=== PATIENT | female | born 1960 | race Caucasian/White ===

== ENCOUNTER 2019-10-17 00:31 | Inpatient (IN) | payer BC ==
[2019-10-17] MEDS ORDERED: Nitroglycerin 0.4 MG TAB (25 Tab Bottle) SL PRN (01:27)
[2019-10-17] MEDS ORDERED: Morphine 2 MG/ML SYRINGE SLOW IVP PRN (01:27)
[2019-10-17] MEDS ORDERED: Sodium Chloride 0.9% 500 ML IV SCH (01:30)
--- NOTE | 2019-10-17 02:16 | HP ---
CHIEF COMPLAINT: Chest pain. HISTORY OF PRESENT ILLNESS: Mrs. Bryant is a very pleasant 59-year-old white female, who comes to the hospital for chest pain. She went to the [place] [facility]. She has been having chest pain for the last day and a half. However, the pain became a lot worse about 2 hours prior to showing up in the ER. She noticed her blood pressure was in the 160, which is not normal for her and she had midsternal pressure, so she went to the ER, where she had an EKG and was found to have inferior ST elevations. She was transferred emergently to the [facility], where she was taken directly to the laborer pullet farm and found to have a severe, 99% stenosis on the distal RCA, which was the culprit lesion. This was stented with bare metal stents. Her pain was completely gone after the case. She felt much better. She denies having had any issues in the past. Her only problems have been osteoarthritis and she is scheduled to get an injection on her knee. She is going to get some sort of gel injected. She otherwise denies any more chest pain, tightness, or pressure. No shortness of breath. PAST MEDICAL HISTORY: Osteoarthritis. SURGICAL HISTORY: 1. Knee surgery. She had a meniscus tear repaired. 2. Tonsillectomy as a child. 3. Total hysterectomy secondary to bleeding fibroids and what she described as endometriosis. OUTPATIENT MEDICATIONS: Ibuprofen p.r.n. ALLERGIES: NO KNOWN DRUG ALLERGIES. SOCIAL HISTORY: Quit smoking about 10 years ago. Social alcohol use. No drug use. 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 REVIEW OF SYSTEMS: 12-point review of systems was done and was all negative unless stated in the history of present illness. PHYSICAL EXAMINATION: VITAL SIGNS: Temperature 98.2, pulse 98, respiratory rate 18, saturating 98% on 2 L nasal cannula, and blood pressure was 136/82. GENERAL: Awake, alert, and oriented x3. No distress. HEENT: Normocephalic and atraumatic. NECK: Supple. LUNGS: Clear. CARDIOVASCULAR: S1 and S2. No S3 or S4. No murmurs or rubs. ABDOMEN: Soft. Positive bowel sounds. EXTREMITIES: No edema. SKIN: Warm and dry. LABORATORY DATA: Laboratory work was reviewed from her ER visit. CBC is unremarkable. Hemoglobin was 12.9. Coags; ACT was 189. Chemistries; potassium was low at 2.9, glucose was 121, calcium of 10.8, BUN 9, creatinine of 0.78, and GFR of 76. Troponin was undetectable x1. BNP was 28. Albumin was 4.9. EKG was reviewed, inferior ST elevations with reciprocal changes. ASSESSMENT/PLAN: 1. Inferior ST-elevation myocardial infarction. 2. Osteoarthritis. PLAN: 1. Status post bare-metal stent to the RCA. She has no significant residual disease. There is about a 40% stenosis in the left circumflex. 2. We will start high dose statins. 3. Brilinta and low-dose aspirin. 4. Echocardiogram to be done tomorrow. 5. Trend troponins. 6. Echocardiogram in the morning. 7. EF was normal on LV gram with inferior hypokinesis with EF about 60%. 8. PPI for stress ulcer prophylaxis. 9. She had an Angio-Seal placed on her right femoral arteriotomy site. 10. We will start Lovenox subcu for DVT prophylaxis tomorrow. 11. Full code. 12. Disposition, pending clinical evolution, probably inpatient for 2 to 3 days. Job ID: [id number]
[2019-10-17 02:25] VITALS: BMI 27.3
[2019-10-17 02:28] LABS: CKMB 3.3 ng/mL (0-6.6)
[2019-10-17 02:30] LABS: Troponin I 0.368 ng/mL (< 0.028)
[2019-10-17 03:03] LABS: Cardiac Risk 5.5 (Less than 4.5)
[2019-10-17 03:21] LABS: Thyroid Stimulating Hormone 14.9558 uIU/mL (0.35-4.94)
[2019-10-17 04:16] LABS: Free T4 (Free Thyroxine) 0.88 ng/dL (0.70-1.48)
[2019-10-17 05:39] LABS: Anion Gap 11 mmol/L (10-20); BUN (Urea Nitrogen) 7 mg/dL (9.8-20.1); Calc. Creatinine Clearance 108 mL/min (70-130); Calcium 9.3 mg/dL (7.8-10.44); Carbon Dioxide 25 mmol/L (22-29); Chloride 108 mmol/L (98-107); Estimated GFR-MDRD 83; Glucose 136 mg/dL (70-105); Potassium 3.3 mmol/L (3.5-5.1); Sodium 141 mmol/L (136-145)
[2019-10-17] MEDS: Aspirin Chewable 81 MG TAB PO SCH (07:29)
[2019-10-17] MEDS: Enoxaparin Sodium 30 MG/0.3 ML SYRINGE SC SCH (07:29)
[2019-10-17] MEDS: Carvedilol 3.125 MG TAB PO SCH ×2 (07:30→16:26)
[2019-10-17] MEDS: TICAGRELOR 90 MG TABLET PO SCH ×2 (07:32→20:33)
[2019-10-17 08:06] LABS: CKMB 4.9 ng/mL (0-6.6)
[2019-10-17] MEDS ORDERED: ALPRAZolam 0.5 MG TAB PO PRN (09:58)
[2019-10-17] MEDS ORDERED: Iopamidol 370 76% 100 ML VIAL ONE (11:09)
[2019-10-17] MEDS ORDERED: Iopamidol 370 76% 50 ML VIAL FS ONE (11:09)
--- NOTE | 2019-10-17 11:25 | PDOC.CPN ---
- Subjective Date: 10/17/19 Time: 11:23 Interval history: She is doing much better. Had a little anxiety earlier today and it improved with Xanax. No more chest pain. - Review of Systems General: denies: fever/chills, weight/appetite/sleep changes, night sweats, fatigue Respiratory: denies: cough, congestion, shortness of breath, exercise intolerance Cardiovascular: denies: chest pain, palpitation, edema, paroxysmal nocturnal dyspnea, orthopnea Gastrointestinal: denies: nausea, vomiting, diarrhea, constipation, abd pain, GI bleeding Musculoskeletal: denies: pain, tenderness, stiffness, swelling, arthritis/ arthralgias Neurological: denies: numbness, syncope, seizure, weakness - Objective Allergies/Adverse Reactions: Allergies Allergy/AdvReac Type Severity Reaction Status Date / Time No Known Allergies Allergy Unverified 10/17/19 01:27 Visit Medications: Current Medications Hydrocodone Bitart/Acetaminophen ([place] 5/325) 1 tab PO Q6H PRN PRN Reason: Pain Alprazolam (Xanax) 0.5 mg PO BIDPRN PRN PRN Reason: Anxiety Last Admin: 10/17/19 10:09 Dose: 0.5 mg Aspirin (Aspirin Chewable) 81 mg PO DAILY [facility] Last Admin: 10/17/19 07:29 Dose: 81 mg Atorvastatin Calcium (Lipitor) 80 mg PO [facility] Carvedilol (Coreg) 3.125 mg PO BID-[facility] Last Admin: 10/17/19 07:30 Dose: 3.125 mg Enoxaparin Sodium (Lovenox) 30 mg SC 0900 [facility] Last Admin: 10/17/19 07:29 Dose: 30 mg Influenza Virus Vaccine Quadrival (Fluzone Quad Syringe) 60 mcg IM .ONCE ONE Stop: 10/17/19 21:01 Morphine Sulfate (Morphine) 2 mg SLOW IVP Q4H PRN PRN Reason: Moderate Chest Pain (4-6) Last Admin: 10/17/19 07:28 Dose: 2 mg Nitroglycerin (Nitrostat) 0.4 mg SL Q5MIN PRN PRN Reason: Chest Pain Pantoprazole Sodium (Protonix) 40 mg PO DAILY [facility] Last Admin: 10/17/19 07:30 Dose: 40 mg Pneumococcal Polyvalent Vaccine (Pneumovax 23) 0.5 ml IM .ONCE ONE Stop: 10/17/19 21:01 Ticagrelor (Brilinta) 90 mg PO BID [facility] Last Admin: 10/17/19 07:32 Dose: 90 mg Vital Signs & Weight: Vital Signs Temp Pulse Resp BP Pulse Ox 10/17/19 11:00 97.6 F 10/17/19 08:00 98 10/17/19 07:00 98.5 F 10/17/19 04:00 98.5 F 98 10/17/19 02:00 100 10/17/19 01:46 98.0 F 94 18 152/91 H 98 10/17/19 01:34 98.0 F 10/17/19 01:27 98 Weight 174 lb 6.17 oz - Physical Exam General: alert & oriented x3, no apparent distress HEENT: mucus membranes moist, normocephaly Neck: supple neck, midline trachea Cardiac: regular rate and rhythm, no murmur Lungs: clear to auscultation Neuro: grossly intact Abdomen: active bowel sounds, soft, non-tender Extremities: no edema Skin: clear Musculoskeletal: no pain - Labs Result Diagrams: 10/17/19 05:00 Troponin/CKMB CK-MB (CK-2) 4.9 ng/mL (0-6.6) 10/17/19 07:28 Troponin I 0.990 ng/mL (< 0.028) H* 10/17/19 07:28 - Telemetry Sinus rhythms and dysrhythmias: sinus rhythm - Assessment/Plan Assessment/Plan: 1. Infeiror STEMI 2. OA PLAN: - S/P BMS to RCA - Continue Brilinta and aspirin - High dose statins - Echo pending, - Will transfer to telemetry floor.
[2019-10-17] MEDS: HYDROcodone/Acetaminophen 5/325 mg Tablet PO PRN (12:52)
[2019-10-17] MEDS ORDERED: Potassium Chloride 20 MEQ TAB PO SCH (16:45)
[2019-10-17] MEDS: Atorvastatin Calcium 40 MG TAB PO SCH (20:32)
[2019-10-17] MEDS ORDERED: FLU VACC QS2019-20(6MOS UP)/PF 60 MCG/0.5 ML SYRINGE IM ONE (21:00)
[2019-10-18] MEDS: HYDROcodone/Acetaminophen 5/325 mg Tablet PO PRN ×2 (04:03→10:23)
[2019-10-18 04:41] LABS: #Eosinphils 0.1 thou/uL (0.0-0.7); #Lymphocytes 2.4 thou/uL (1.20-3.40); #Monocytes 0.6 thou/uL (0.11-0.59); #Neutrophils 4.3 thou/uL (1.40-6.50); %Basophils 0.4 % (0.0-1.0); %Eosinophils 1.1 % (0.0-10.0); %Lymphocytes 32.6 % (21.0-51.0); %Monocytes 7.8 % (0.0-10.0); %Neutrophils 58.1 % (42.0-75.0); Mean Corpuscular HGB CONC 33.2 g/dL (32.0-36.0); Mean Corpuscular Hemoglobin 29.6 pg (27.0-31.0); Mean Corpuscular Volume 89.4 fL (78.0-98.0); Mean Platelet Volume 8.2 fL (7.4-10.4); Platelet Count 234 thou/uL (130-400); RBC Distribution Width 11.7 % (11.5-14.5); Red Blood Cell (RBC) Count 4.05 mill/uL (4.20-5.40); White Blood Cell (WBC) Count 7.4 thou/uL (4.8-10.8)
[2019-10-18 05:05] LABS: AST (SGOT) 18 U/L (5-34); Albumin 4.1 g/dL (3.5-5.0); Alkaline Phosphatase 79 U/L (40-110); Anion Gap 9 mmol/L (10-20); BUN (Urea Nitrogen) 7 mg/dL (9.8-20.1); Bilirubin, Total 0.6 mg/dL (0.2-1.2); Calc. Creatinine Clearance 115 mL/min (70-130); Calcium 9.3 mg/dL (7.8-10.44); Carbon Dioxide 27 mmol/L (22-29); Chloride 110 mmol/L (98-107); Estimated GFR-MDRD Greater than 90; Globulin 2.7 g/dL (2.4-3.5); Glucose 95 mg/dL (70-105); Potassium 3.8 mmol/L (3.5-5.1); Protein, Total 6.8 g/dL (6.0-8.3); Sodium 142 mmol/L (136-145)
[2019-10-18 05:06] LABS: ALT (SGPT) 20 U/L (8-55)
[2019-10-18] MEDS: Carvedilol 3.125 MG TAB PO SCH ×2 (09:46→16:57)
[2019-10-18] MEDS: Aspirin Chewable 81 MG TAB PO SCH (09:46)
[2019-10-18] MEDS: Lisinopril 2.5 MG TAB PO SCH (09:46)
[2019-10-18] MEDS: Enoxaparin Sodium 30 MG/0.3 ML SYRINGE SC SCH (09:47)
[2019-10-18] MEDS: TICAGRELOR 90 MG TABLET PO SCH ×2 (09:48→19:39)
--- NOTE | 2019-10-18 14:38 | PDOC.CPN ---
- Subjective Date: 10/18/19 Time: 14:36 Interval history: She is doing very well. No chest pain. - Review of Systems General: denies: fever/chills, weight/appetite/sleep changes, night sweats, fatigue Respiratory: denies: cough, congestion, shortness of breath, exercise intolerance Cardiovascular: denies: chest pain, palpitation, edema, paroxysmal nocturnal dyspnea, orthopnea Gastrointestinal: denies: nausea, vomiting, diarrhea, constipation, abd pain, GI bleeding Musculoskeletal: denies: pain, tenderness, stiffness, swelling, arthritis/ arthralgias Neurological: denies: numbness, syncope, seizure, weakness - Objective Allergies/Adverse Reactions: Allergies Allergy/AdvReac Type Severity Reaction Status Date / Time No Known Allergies Allergy Unverified 10/17/19 01:27 Visit Medications: Current Medications Acetaminophen (Tylenol) 650 mg PO Q6H PRN PRN Reason: Headache/Fever or Pain Hydrocodone Bitart/Acetaminophen ([place] 5/325) 1 tab PO Q6H PRN PRN Reason: Pain Last Admin: 10/18/19 10:23 Dose: 1 tab Alprazolam (Xanax) 0.5 mg PO BIDPRN PRN PRN Reason: Anxiety Last Admin: 10/17/19 10:09 Dose: 0.5 mg Aspirin (Aspirin Chewable) 81 mg PO DAILY [facility] Last Admin: 10/18/19 09:46 Dose: 81 mg Atorvastatin Calcium (Lipitor) 80 mg PO HS [facility] Last Admin: 10/17/19 20:32 Dose: 80 mg Carvedilol (Coreg) 3.125 mg PO BID-WM [facility] Last Admin: 10/18/19 09:46 Dose: 3.125 mg Enoxaparin Sodium (Lovenox) 30 mg SC 0900 [facility] Last Admin: 10/18/19 09:47 Dose: 30 mg Lisinopril (Zestril) 2.5 mg PO DAILY [facility] Last Admin: 10/18/19 09:46 Dose: 2.5 mg Morphine Sulfate (Morphine) 2 mg SLOW IVP Q4H PRN PRN Reason: Moderate Chest Pain (4-6) Last Admin: 10/17/19 07:28 Dose: 2 mg Nitroglycerin (Nitrostat) 0.4 mg SL Q5MIN PRN PRN Reason: Chest Pain Pantoprazole Sodium (Protonix) 40 mg PO DAILY [facility] Last Admin: 10/18/19 09:47 Dose: 40 mg Ticagrelor (Brilinta) 90 mg PO BID [facility] Last Admin: 10/18/19 09:48 Dose: 90 mg Vital Signs & Weight: Vital Signs Temp Pulse Resp BP Pulse Ox 10/18/19 12:00 98.6 F 79 18 129/72 97 10/18/19 08:10 97.9 F 83 18 121/60 97 10/18/19 04:00 97.8 F 84 16 125/69 94 L Weight 170 lb 10.205 oz - Physical Exam General: alert & oriented x3 HEENT: mucus membranes moist, normocephaly Neck: supple neck, midline trachea Cardiac: no murmur Lungs: clear to auscultation, no wheeze, rales, rhonchi Neuro: grossly intact Abdomen: active bowel sounds, soft, non-tender Extremities: no edema Skin: clear Musculoskeletal: no pain - Labs Result Diagrams: 10/18/19 03:56 10/18/19 03:56 Troponin/CKMB CK-MB (CK-2) 4.9 ng/mL (0-6.6) 10/17/19 07:28 Troponin I 0.990 ng/mL (< 0.028) H* 10/17/19 07:28 - Telemetry Sinus rhythms and dysrhythmias: sinus rhythm - Assessment/Plan Assessment/Plan: 1. Infeiror STEMI 2. OA PLAN: - S/P BMS to RCA - Continue Brilinta and aspirin - High dose statins - Normal LV function on echo. - Home tomorrow morning.
[2019-10-18] MEDS: Acetaminophen 325 MG TAB PO PRN (14:40)
--- NOTE | 2019-10-18 16:02 | EKG ---
Test Reason : POST CATH Blood Pressure : / mmHG Vent. Rate : 088 BPM Atrial Rate : 088 BPM P-R Int : 160 ms QRS Dur : 088 ms QT Int : 368 ms P-R-T Axes : 063 061 002 degrees QTc Int : 445 ms Normal sinus rhythm T wave abnormality, consider inferior ischemia Abnormal ECG No previous ECGs available Confirmed by DR. Araceli COUGHLIN MD ([id number]) on 10/18/2019 4:02:06 PM Referred By: Abigail CASILLAS Confirmed By:DR. Araceli COUGHLIN MD
[2019-10-18] MEDS: Atorvastatin Calcium 40 MG TAB PO SCH (19:38)
[2019-10-19] MEDS: Acetaminophen 325 MG TAB PO PRN (07:50)
[2019-10-19] MEDS: Carvedilol 3.125 MG TAB PO SCH (07:50)
[2019-10-19] MEDS: Enoxaparin Sodium 30 MG/0.3 ML SYRINGE SC SCH (09:36)
[2019-10-19] MEDS: Aspirin Chewable 81 MG TAB PO SCH (09:36)
[2019-10-19] MEDS: Lisinopril 2.5 MG TAB PO SCH (09:37)
[2019-10-19] MEDS: TICAGRELOR 90 MG TABLET PO SCH (09:38)
[2019-10-19 14:01] VITALS: BP 121/75; TEMP 98.4
--- NOTE | 2019-10-19 18:47 | DIS ---
DATE OF ADMISSION: 10/17/2019 DATE OF DISCHARGE: 10/19/2019 DISCHARGING PHYSICIAN: Ad Washington MD. PRIMARY DIAGNOSIS: Inferior ST-elevation myocardial infarction. PROCEDURES PERFORMED: 1. Echocardiogram. 2. Heart catheterization emergently and stent placement to the RCA with bare metal stent. SUMMARY: Ms. Bryant is a very pleasant 59-year-old white female, who came to the hospital with chest pain. 2 hours into her episode of chest pain, she was found to have ST elevations and transferred immediately from the [facility] to [facility], where she was taken immediately to the labourers and found to have a subtotaled RCA lesion. This was stented successfully with bare metal stent. She had a 3.0 x 20 mm stent distally and a 3.5 x 24 mm bare metal stent proximally. She did well postoperatively. Echocardiogram showed an EF of 55% to 60% with grade 1 diastolic dysfunction and mild inferior hypokinesis. She was pain free. Blood pressure was slightly high in the 130s so we were able to start a low-dose JUDAH inhibitor and beta julio. She tolerated dual antiplatelet therapy and statin therapy as well. Her lipid profile showed an LDL of 224, goal is to be less than 70. Her TSH was high, but her free T4 was low normal. This may be sick euthyroid syndrome. Her troponin went as high as 0.99, so her TN was actually small as it was so quick to be opened up. She is doing well on day of discharge without any issues. DISCHARGE MEDICATIONS: 1. Aspirin 81 a day. 2. Brilinta 90 mg p.o. b.i.d. 3. Lipitor 80 mg p.o. at bedtime. 4. Coreg 3.125 b.i.d. 5. Lisinopril 2.5 mg a day. 6. Sublingual nitroglycerin p.r.n. with 0.4 mg as needed for chest pain. Followup appointments with Dr. Washington in 4-6 weeks. 30 minutes spent at bedside for discharge instructions. Job ID: [id number]
--- NOTE | 2019-10-21 21:08 | EKG ---
Test Reason : CHEST PAIN Blood Pressure : / mmHG Vent. Rate : 106 BPM Atrial Rate : 107 BPM P-R Int : 152 ms QRS Dur : 084 ms QT Int : 364 ms P-R-T Axes : 047 061 005 degrees QTc Int : 483 ms Sinus tachycardia Otherwise normal ECG Confirmed by Peyman SUE ([id number]) on 10/21/2019 9:08:05 PM Referred By: VINNY Confirmed By:Peyman SUE
--- NOTE | 2019-10-21 21:15 | EKG ---
Test Reason : Blood Pressure : / mmHG Vent. Rate : 083 BPM Atrial Rate : 083 BPM P-R Int : 154 ms QRS Dur : 086 ms QT Int : 390 ms P-R-T Axes : 066 054 -08 degrees QTc Int : 458 ms Normal sinus rhythm T wave abnormality, consider inferior ischemia Abnormal ECG When compared with ECG of 17-OCT-2019 07:28, (Unconfirmed) T wave amplitude has increased in Anterior leads Confirmed by Peyman SUE ([id number]) on 10/21/2019 9:14:21 PM Referred By: VINNY Confirmed By:Peyman SUE
== END 2019-10-19 14:50 | disposition home or self-care (01) | DRG 249 ==
LOC: CCL 00:31 → CCU 01:05 → 2NO 12:46
PROVIDERS: ADMIT Internal Medicine Cardiovascular Disease; ATTEND Internal Medicine Cardiovascular Disease
PROC: 4A023N7 Measurement of Cardiac Sampling and Pressure, Left Heart, Percutaneous Approach (ICD-10-PCS; principal; 2019-10-17)
PROC: 02703DZ Dilation of Coronary Artery, One Artery with Intraluminal Device, Percutaneous Approach (ICD-10-PCS; 2019-10-17)
PROC: 02C03ZZ Extirpation of Matter from Coronary Artery, One Artery, Percutaneous Approach (ICD-10-PCS; 2019-10-17)
PROC: B2111ZZ Fluoroscopy of Multiple Coronary Arteries using Low Osmolar Contrast (ICD-10-PCS; 2019-10-17)
PROC: 3E02340 Introduction of Influenza Vaccine into Muscle, Percutaneous Approach (ICD-10-PCS; 2019-10-17)
PROC: 3E0234Z Introduction of Serum, Toxoid and Vaccine into Muscle, Percutaneous Approach (ICD-10-PCS; 2019-10-17)
DX: I21.19 ST elevation (STEMI) myocardial infarction involving other coronary artery of inferior wall (principal); M19.90 Unspecified osteoarthritis, unspecified site; F41.9 Anxiety disorder, unspecified; Z90.710 Acquired absence of both cervix and uterus; Z87.891 Personal history of nicotine dependence; Z23 Encounter for immunization
CPT/HCPCS: 36415; 80048; 80053; 80061; 82553; 84439; 84443; 84484; 85025; 85347; 90471; 90686; 90732; 92941; 93005; 93010; 93306; 93458; 93798; C1760; C1769; C1876; C1887; G0008; G0009; J1650; J2270; Q9967

== ENCOUNTER 2019-11-15 07:15 | Observation (INO) | payer BC ==
[2019-11-15] MEDS ORDERED: Enoxaparin Sodium 80 MG/0.8 ML SYRINGE ONE (12:24)
[2019-11-15 12:40] LABS: Troponin I 0.036 ng/mL (< 0.028)
[2019-11-15] MEDS ORDERED: Acetaminophen 325 MG TAB PO PRN (14:03)
[2019-11-15] MEDS ORDERED: HYDROcodone/Acetaminophen 10/325 mg Tablet PO PRN (14:03)
[2019-11-15] MEDS ORDERED: Ondansetron ODT 4 MG TAB PO PRN (14:03)
[2019-11-15] MEDS ORDERED: HYDROcodone/Acetaminophen 5/325 mg Tablet PO PRN (14:03)
[2019-11-15] MEDS ORDERED: Ondansetron PF 4 MG/2 ML Vial IVP PRN (14:03)
[2019-11-15] MEDS ORDERED: Nitroglycerin 0.4 MG TAB (25 Tab Bottle) SL PRN (14:07)
[2019-11-15] MEDS ORDERED: Acetaminophen 325 MG TAB ONE (14:47)
--- NOTE | 2019-11-15 15:07 | HP ---
PRIMARY CARE PROVIDER: Dr. Laurence Hernandez. CHIEF COMPLAINT: Chest pain. HISTORY OF PRESENT ILLNESS: A 59-year-old female with past medical history significant for recent [id number] myocardial infarction, status post stent placement on October 17, 2019, brought in on transfer from [place] [facility] for further evaluation and treatment of acute onset of chest pain. The patient reported that since discharge from the hospital on October 20, she has been having intermittent midsternal chest pain, rated around 4 to 6/10, which resolves with sublingual nitro. The patient yesterday reportedly developed an episode of midsternal chest pain, which lasted for 5 minutes, but resolved completely following sublingual nitro. However, about 45 minutes later, she started having chest pain again and also resolved following sublingual nitro. The patient was concerned at this point, hence she went to the ER in [place], where she was evaluated with serial troponins, which were negative. EKG also obtained was unremarkable. Cardiology on-call, Dr. Schmid was contacted and he recommended transfer over here for observation. The patient denied nausea, vomiting, diaphoresis, headache, leg swelling, shortness of breath, palpitations, dysuria, hematuria, abdominal pain, or change in bowel habit. She however did report headache earlier today on presentation to the hospital. Midsternal chest pain has resolved since after the second episode yesterday and the patient has not had any further midsternal chest pain up to present. However, she reported some intermittent left axillary pain, rated at 3 to 4, lasting about 2 minutes, which resolved spontaneously. There is no history of cough, fever, shortness of breath, or sick contact. PAST MEDICAL HISTORY: 1. Coronary artery disease, status post recent stent placement. 2. Degenerative joint disease. 3. Anxiety. PAST SURGICAL HISTORY: 1. Cataract surgery. 2. Cardiac catheterization with stent placement. 3. Hysterectomy. 4. Tonsillectomy. 5. Left knee surgery. FAMILY HISTORY: Significant for coronary artery disease in mother and grandparents. Father from rare muscular dystrophy. SOCIAL HISTORY: The patient lives with family in [place]. She is a former smoker, who smoked a pack for more than 30 years, but quit about 2 years ago. Denied recreational drug use, but admitted to occasional alcohol use. ALLERGIES: NO KNOWN DRUG ALLERGIES REPORTED. MEDICATIONS: Prior to hospital medications; 1. Aspirin 81 mg p.o. daily. 2. Lisinopril 2.5 mg p.o. daily. 3. Brilinta 90 mg p.o. b.i.d. 4. Lipitor 80 mg p.o. daily at bedtime. 5. Carvedilol 3.125 mg p.o. b.i.d. REVIEW OF SYSTEMS: A 12-point review of system performed, was negative other than pertinent positives and negatives included in the history of present illness. PHYSICAL EXAMINATION: VITAL SIGNS: Temperature 97.8, pulse 81, respiratory rate 18, SpO2 of 100% on room air, blood pressure is 107/70. GENERAL: Middle-age female, in no obvious distress. Afebrile, anicteric, acyanotic. HEENT: Normocephalic, atraumatic. Oral mucosa is moist. NECK: Supple with no JVD or masses. CARDIOVASCULAR: Regular rhythm and rate with normal heart sounds 1 and 2. No murmur was appreciated. RESPIRATORY: Good air entry bilaterally with no crackle or rhonchi or use of accessory muscles. GI: Full, soft, nontender, nondistended with normal bowel sounds. EXTREMITIES: Grossly normal looking, atraumatic with no edema or erythema. Distal pulses are palpable. STOCK PARTS FABRICATOR: Conscious, alert and oriented x3 with appropriate mental status. Cranial nerves 2 through 12 are grossly intact. The patient moves all extremities. PSYCHIATRIC: The patient has emotional lability. Denied suicidal ideation. DIAGNOSTIC DATA: CBC on November 14, 2019, showed WBC count of 7.1, hemoglobin of 12.0, MCV of 90.6, platelets of 269. CMP on November 14, 2019, showed sodium 143, potassium 3.7, chloride 107, CO2 of 24, BUN 18, creatinine 0.75, glucose 99, calcium 9.5. Total bilirubin 0.3, AST 22, ALT 27, alkaline phosphatase 97, total protein 7.6, albumin 4.5, globulin 3.1. Lipase is 32. Serial troponin x3 performed at [place] from 9 p.m. on November 14 to 3 a.m. on November 15 were unremarkable at less than 0.010. However, repeat troponin at 11:58 a.m. on November 15 was elevated at 0.036. EKG showed normal sinus rhythm with no obvious ischemic changes. Evidence of prior WI is noted. ASSESSMENT: 1. Chest pain: Intermittent since recent ST-elevation myocardial infarction. This is concerning for unstable angina and/or [id number] myocardial infarction, given elevation in troponin, though indeterminate range. The patient also reported some intermittent left axillary pain, which is however, different from usual substernal chest pain. 2. Anxiety disorder. 3. Gastroesophageal reflux disease. PLAN: 1. We will admit the patient to telemetry. 2. We will monitor hemodynamics closely. 3. We will also get serial troponin. 4. We will restart antiplatelets. 5. We will also start the patient on anticoagulation with Lovenox for acute coronary syndrome. 6. We will consult Cardiology for further evaluation and treatment. 7. Diet as tolerated. 8. Code status: Full code. Daughter is the surrogate decision maker. 9. Further treatment to follow depending on hospital course. Job ID: [id number]
[2019-11-15 15:32] LABS: Troponin I 0.022 ng/mL (< 0.028)
[2019-11-15] MEDS: Carvedilol 3.125 MG TAB PO SCH (17:42)
[2019-11-15 18:14] VITALS: BMI 27.1
[2019-11-15] MEDS ORDERED: Aspirin 81 mg Enteric Coated Tablet PO SCH (18:15)
[2019-11-15 19:01] LABS: Troponin I Less than 0.010 ng/mL (< 0.028)
[2019-11-15] MEDS: Famotidine 20 MG TAB PO SCH (20:42)
[2019-11-15] MEDS: TICAGRELOR 90 MG TABLET PO SCH (20:42)
[2019-11-15] MEDS: Famotidine/PF 20 mg/2ml Vial SLOW IVP SCH (20:42)
[2019-11-15] MEDS ORDERED: Enoxaparin Sodium 80 MG/0.8 ML SYRINGE SC SCH (21:00)
[2019-11-15] MEDS ORDERED: Atorvastatin Calcium 40 MG TAB PO SCH (21:00)
--- NOTE | 2019-11-16 00:28 | CON ---
DATE OF CONSULTATION: 11/15/2019 REASON FOR CONSULTATION: Recurrent chest pain. PRIMARY FAMILY LAW MEDIATOR: Dr. Ad Washington. HISTORY OF PRESENT ILLNESS: Ms. Aelsia Bryant is a very pleasant 59-year-old woman. The patient had an acute inferior myocardial infarction on 10/17/2019. She presented with severe substernal chest pain. She was taken to cardiac catheterization lab. She was found to have no obstructive stenosis in the left main or LAD, nonobstructive plaque in the mid circumflex, and a subtotal lesion in the right coronary artery. She had 2 stents placed. This was done successfully on 10/17/2019. She had a 3.0 x 20 mm bare-metal stent and a 3.5 x 24 mm bare-metal stent. The patient tolerated that well and only had a very slight rise in cardiac enzymes. The patient did well and was released home. The ejection fraction was within normal limits. The patient had some recurrent chest pain yesterday. The patient states that it was really identical to the pain she had when she had a heart attack, but it was much less intense. It was in the middle of her chest. It came on at rest at about 1:00 in the afternoon, took a nitroglycerin and it went away. About 45 minutes later, it returned and she came to the hospital for evaluation. She did not have any recurrent pain following that. She was kept in [facility]. She had cardiac enzymes drawn, which were all less than 0.010. However, the patient was transferred here in view of the recurrent resting chest pain and she did have a troponin level in the indeterminate range of 0.036. The patient is pain-free now. She has some left lateral pain, but nothing like her heart attack pain. No anginal pain since then. MEDICATIONS: See nurse's notes, include; 1. Aspirin. 2. Ticagrelor. 3. Also high dose statin and carvedilol. ALLERGIES: NONE KNOWN. SOCIAL HISTORY: No alcohol or tobacco. REVIEW OF SYSTEMS: CONSTITUTIONAL: No significant weight gain or loss. VISION: No changes. HEARING: No changes. PULMONARY: No cough or wheezing. GASTROINTESTINAL: No nausea, vomiting, or diarrhea. SKIN: No rashes. NEUROLOGIC: No unilateral weakness or numbness. PSYCHIATRIC: No unusual depression or anxiety. PHYSICAL EXAMINATION: GENERAL: This is a pleasant 59-year-old woman resting comfortably, in no distress. VITAL SIGNS: Blood pressure 117/66, pulse 70, it is regular. LUNGS: Clear. CARDIAC: Normal S1, normal S2. No murmur, rub, or gallop. ABDOMEN: Soft, nontender. EXTREMITIES: Warm and dry. No clubbing or cyanosis. There is no edema. Right groin is not tender. DIAGNOSTIC STUDIES: EKG shows minimal nonspecific T-wave changes in the inferior leads. Troponin levels outlined above. They were initially negative and indeterminate. ASSESSMENT: 1. Status post myocardial infarction a month ago, inferior wall, treated with emergency bare-metal stents. 2. Normal left ventricular function. 3. Recurrent anginal chest pain with indeterminate troponin. I did review the cardiac catheterization films. The angiographic appearance is excellent following the stents. There was a long area that did require stenting including of course crossing some right ventricular branches. I suspect this is likely the cause of the patient's chest pain. There is no EKG changes and only an indeterminate troponin. The circumflex lesion does not look bad enough to cause angina. The patient should be released home tomorrow morning if she is pain-free tonight to follow up with Dr. Washington. She has a followup in 2 days. No further recommendations. Dr. Waters will be available tomorrow if needed. Otherwise, the patient should be discharged tomorrow on the same medicines she was admitted on with the only difference, lipid profile is drawn tomorrow and then start on Zetia. She had extremely high cholesterol initially with a total of 301. She could be released home tomorrow if she does well tonight. Thank you so much. Job ID: [id number]
[2019-11-16 05:11] LABS: Cardiac Risk 4.4 (Less than 4.5)
[2019-11-16 06:20] LABS: Hemoglobin 12.4 g/dL (12.0-16.0); Mean Corpuscular HGB CONC 30.8 g/dL (32.0-36.0); Mean Corpuscular Hemoglobin 28.1 pg (27.0-31.0); Mean Corpuscular Volume 91.3 fL (78.0-98.0); Mean Platelet Volume 8.7 fL (7.4-10.4); Platelet Count 227 thou/uL (130-400); RBC Distribution Width 12.1 % (11.5-14.5); White Blood Cell (WBC) Count 6.2 thou/uL (4.8-10.8)
[2019-11-16 06:53] LABS: Anion Gap 12 mmol/L (10-20); BUN (Urea Nitrogen) 14 mg/dL (9.8-20.1); Calc. Creatinine Clearance 112 mL/min (70-130); Calcium 9.3 mg/dL (7.8-10.44); Carbon Dioxide 24 mmol/L (22-29); Chloride 108 mmol/L (98-107); Estimated GFR-MDRD 88; Glucose 98 mg/dL (70-105); Potassium 4.1 mmol/L (3.5-5.1); Sodium 140 mmol/L (136-145)
[2019-11-16] MEDS ORDERED: Ezetimibe 10 MG TAB PO SCH (09:00)
[2019-11-16] MEDS ORDERED: Aspirin Chewable 81 MG TAB PO SCH (09:00)
[2019-11-16 09:04] VITALS: BP 92/54; TEMP 98.4
[2019-11-16] MEDS: TICAGRELOR 90 MG TABLET PO SCH (09:04)
[2019-11-16] MEDS: Famotidine 20 MG TAB PO SCH (09:04)
[2019-11-16] MEDS: Carvedilol 3.125 MG TAB PO SCH (09:04)
[2019-11-16] MEDS: Famotidine/PF 20 mg/2ml Vial SLOW IVP SCH (09:06)
== END 2019-11-16 11:25 | disposition home or self-care (01) ==
LOC: ERS 07:15 → ERHOLD 13:33 → 2NO 16:46
PROVIDERS: ADMIT Internal Medicine Nephrology; ATTEND Internal Medicine Nephrology
DX: I25.119 Atherosclerotic heart disease of native coronary artery with unspecified angina pectoris (principal); M19.90 Unspecified osteoarthritis, unspecified site; F41.9 Anxiety disorder, unspecified; I25.2 Old myocardial infarction; K21.9 Gastro-esophageal reflux disease without esophagitis; Z87.891 Personal history of nicotine dependence; Z79.02 Long term (current) use of antithrombotics/antiplatelets; Z79.82 Long term (current) use of aspirin; Z79.899 Other long term (current) drug therapy; Z95.5 Presence of coronary angioplasty implant and graft
CPT/HCPCS: 36415; 80048; 80061; 85027; 93005; 96372; 96374; G0378; J1650; S0028

== ENCOUNTER 2020-08-03 08:09 | Outpatient (CLI) | payer BC ==
[2020-08-03] MEDS ORDERED: Regadenoson 0.4 MG/5 ML SYRINGE ONE (09:23)
--- NOTE | 2020-08-03 13:06 | NM ---
EXAM: CARDIAC SPECT HISTORY: Chest pain, coronary disease, hypertension, dyslipidemia TECHNIQUE: A myocardial perfusion scan was performed using the single isotope 1 day protocol with kt hnetium 99m sestamibi. [10 mCi] was injected intravenously for the rest exam followed by 30 mCi for the stress study. Pharmacologic stress with Lexiscan was monitored and interpreted by LACEY Marie FINDINGS: Homogeneous tracer distribution is seen in the myocardial segments on stress and rest image s without fixed or reversible defects. Gated SPECT LVEF: 56% Wall motion exam: Normal IMPRESSION: Normal myocardial perfusion scan
== END 2020-08-03 08:10 | disposition home or self-care (01) ==
LOC: NM 08:09
PROVIDERS: ATTEND Internal Medicine
DX: I25.110 Atherosclerotic heart disease of native coronary artery with unstable angina pectoris (principal); R07.9 Chest pain, unspecified
CPT/HCPCS: 78452; 93017; A9500; J2785

== ENCOUNTER 2020-09-11 23:21 | Observation (INO) | payer BC, OTHER ==
--- NOTE | 2020-09-11 23:51 | PDOC.FPRHP ---
- History of Present Illness Chief Complaint: Chest pain History of Present Illness: This is a 60yo F with PMH of CAD s/p stents, GA, hypothyroid, HLD, HTN, anxiety, and GERD who presents with a CC of chest pain. Pain started around 10 this morning. She took nitro at home with relief of pain. She had pain again around 1pm and attempted relief with nitro. She then went to the [facility] ED. She describes the pain as substernal and denies any radiation. She reports that the pain is similar to indigestion but is nervous become she also experienced indigestion-like pain with her GA. She denies nausea and diaphoresis. Endorses SOB every once in awhile. Reports that the last time she experienced this type of pain was 3 months ago. Her blocker and sewer is Dr. Washington and she reports that her last appointment was ~ 8 months ago. Reports nasal congestion but has seasonal allergies. ED Course: ASA, Nitro - Allergies/Adverse Reactions Allergies Allergy/AdvReac Type Severity Reaction Status Date / Time No Known Allergies Allergy Verified 11/15/19 16:59 - Home Medications Medication Instructions Recorded Confirmed Type Aspirin Chewable [Aspirin Chewable 81 mg PO DAILY #30 tab 10/19/19 09/12/20 Rx Tablet] Atorvastatin Calcium [Lipitor] 80 mg PO HS #30 tab 10/19/19 09/12/20 Rx Carvedilol [Coreg] 3.125 mg PO BID-WM #60 tab 10/19/19 09/12/20 Rx Lisinopril [Zestril] 2.5 mg PO DAILY #30 tab 10/19/19 09/12/20 Rx Nitroglycerin [Nitrostat] 0.4 mg SL Q5MIN PRN #30 tab 10/19/19 09/12/20 Rx Ticagrelor [Brilinta] 90 mg PO BID #60 tab 10/19/19 09/12/20 Rx Evolocumab [Repatha Syringe] 140 mg SQ ROUTINE 05/23/20 09/12/20 History FLUoxetine HCl 20 mg PO DAILY 05/23/20 09/12/20 History Levothyroxine Sodium [Synthroid] 50 mcg PO DAILY 05/23/20 09/12/20 History Pantoprazole [Protonix] 40 mg PO DAILY 05/23/20 09/12/20 History Ranolazine [Ranexa] 500 mg PO BID 05/23/20 09/12/20 History - History PMHx: CAD s/p stents, GA, hypothyroid, HLD, HTN, anxiety, GERD PSHx: cataracts, L. knee, hysterectomy, tonsillectomy FHx: Mom - CAD, HTN; Grandparents - HTN, CAD, MIs, DM Social: tobacco -previous smoker, quit 8-9 years ago, started in 8th grade - 2 packs/day, occasional alcohol use, denies drug use - Review of Systems General: denies: fever/chills, weight/appetite/sleep changes, night sweats, fatigue Eyes: denies: vision changes ENT: reports: nasal congestion. denies: rhinorrhea Respiratory: reports: congestion, shortness of breath. denies: cough, exercise intolerance Cardiovascular: reports: chest pain, palpitation. denies: edema, paroxysmal nocturnal dyspnea, orthopnea Gastrointestinal: denies: nausea, vomiting, diarrhea, constipation, abdominal pain Genitourinary: denies: dysuria Skin: denies: lesions Musculoskeletal: denies: swelling Neurological: denies: seizure, weakness Psychological: reports: anxiety - Vital signs BP: 109/79, MAP: 89, Pulse: 86, Resp: 18, O2 sat: 96 on (Room Air), Time: 09/11/2020 23:22. Weight 78kg - Physical Exam Constitutional: NAD, awake, alert and oriented, well developed HEENT: normocephalic and atraumatic, PERRLA, EOMI, MMM Neck: supple, FROM, trachea midline Chest: no-tender to palpation, no lesions Heart: RRR, normal S1/S2, no murmurs/rubs/gallops, pulses present Lungs: CTAB, no respiratory distress, good air movement, no rales/rhonchi, no wheezing, no retractions Abdomen: soft, non-tender, bowel sounds present Musculoskeletal: normal structure Neurological: no focal deficit Skin: no rash/lesions Heme/Lymphatic: no unusual bruising or bleeding, no purpura, no petechia Psychiatric: normal mood and affect FMR H&P: Results - Labs Result Diagrams: 09/12/20 02:44 09/12/20 02:44 FMR H&P: A/P - Plan Typical chest pain likely 2/2 to ACS vs. GERD - significant cardiac history of CAD s/p stents and GA; patient also has history of GERD - EKG: normal sinus rhythm, no st segment changes - trop: <0.010, will continue to trend - due to patient's description of the pain as "indigestion", consider giving GI cocktail if patient experiences pain - Stress test 1 month ago: normal - daily aspirin and nitro prn - consider consulting cardiology, pt sees Dr. Washington - admit to tele for monitoring Hypothyroid - TSH: 8.6657 - will obtain free T4 - will increase home levo to 75 mcg HLD - continue home meds HTN - continue home meds Anxiety - continue home meds GERD - continue home med PCP: Alis, courtesy call tomorrow Code: Full IVF: SL Diet: HH PPx: Lovenox, Protonix Dispo: will admit to tele for further evaluation; likely LOS < 48 hrs. FMR H&P: Upper Level - Plan Date/Time: 09/11/20 9788 I, Penny Goldberg MD, have evaluated this patient and agree with findings/plan as outlined by hospitality internship resident. Pertinent changes/additions are listed here. This is a 60yo F with PMH significant for GA and CAD s/p 2 stents in Oct 2019 who presents to the ER with CC of chest pain. Reports pain is dull like pain, substernal, previously radiated to jaw. She had chest pain started at 10am this morning, took nitro with relief of pain. Had pain again around 1pm. States felt like previous GA so she came to the ER. Initially thought it may be due to GERD. Currently no chest pain in the ER. Endorses occasional SOB. Endorses palpitations. Denies NVD, LE edema, abd pain. Patient's blocker and sewer is Dr. Washington. States she last saw him about 8 months ago. No recent stressors. Drives a school bus for work. VS wnl. EKG NSR. PE unremarkable. Will admit patient to tele obs for typical chest pain, ACS r/o. Will trend trops, trop neg x 1 so far. EKG normal. Normal stress one month ago. Chest pain could be due to GERD etiology, will give GI cocktail if pain returns. Can consider cards consult in the AM. Continue medications for chronic conditions. PCP: Alis Code: Full Diet: NPO Case discussed with Dr. Covarrubias. See hospitality internship note for full history. Addendum - Attending - Attending Attestation Date/Time: 09/12/2021 I personally evaluated the patient and discussed the management with Dr. Blackwood and Dr. Goldberg I agree with the History, Examination, Assessment and Plan documented above with any addition or exceptions noted below. Admit to tele for rule out ACS. Patient reports it feels similar to previous GA. Trop remains negative and no evolving EKG changes. CP as early as 10 am. Stress in AM if remains without dx of GA. Yan
[2020-09-12] MEDS ORDERED: Acetaminophen 325 MG TAB PO PRN (00:40)
[2020-09-12] MEDS ORDERED: Ondansetron PF 4 MG/2 ML Vial IVP PRN (00:40)
[2020-09-12] MEDS ORDERED: Ondansetron ODT 4 MG TAB PO PRN (00:40)
[2020-09-12] MEDS ORDERED: Nitroglycerin 0.4 MG TAB (25 Tab Bottle) SL PRN ×2 (00:42→02:00)
[2020-09-12] MEDS ORDERED: Acetaminophen 500 MG TAB ONE (00:56)
[2020-09-12] MEDS ORDERED: Aspirin Chewable 81 MG TAB ONE (00:56)
[2020-09-12 01:10] LABS: Troponin I 0.011 ng/mL (< 0.028)
[2020-09-12 01:38] VITALS: BMI 28.3
[2020-09-12 02:51] LABS: #Eosinphils 0.1 thou/uL (0.0-0.7); #Lymphocytes 2.4 thou/uL (1.20-3.40); #Monocytes 0.5 thou/uL (0.11-0.59); #Neutrophils 3.7 thou/uL (1.40-6.50); %Basophils 0.5 % (0.0-1.0); %Lymphocytes 35.2 % (21.0-51.0); %Monocytes 7.7 % (0.0-10.0); %Neutrophils 54.7 % (42.0-75.0); Hemoglobin 10.8 g/dL (12.0-16.0); Mean Corpuscular HGB CONC 34.4 g/dL (32.0-36.0); Mean Corpuscular Hemoglobin 31.8 pg (27.0-31.0); Mean Corpuscular Volume 92.4 fL (78.0-98.0); Mean Platelet Volume 7.5 fL (7.4-10.4); Platelet Count 222 thou/uL (130-400); RBC Distribution Width 11.9 % (11.5-14.5); Red Blood Cell (RBC) Count 3.41 mill/uL (4.20-5.40); White Blood Cell (WBC) Count 6.7 thou/uL (4.8-10.8)
[2020-09-12 03:21] LABS: Anion Gap 13 mmol/L (10-20); BUN (Urea Nitrogen) 14 mg/dL (9.8-20.1); Calc. Creatinine Clearance 97 mL/min (70-130); Calcium 8.7 mg/dL (7.8-10.44); Carbon Dioxide 23 mmol/L (22-29); Chloride 108 mmol/L (98-107); Estimated GFR-MDRD 72; Glucose 125 mg/dL (70-105); Potassium 3.8 mmol/L (3.5-5.1); Sodium 140 mmol/L (136-145)
[2020-09-12 03:28] LABS: Troponin I Less than 0.010 ng/mL (< 0.028)
[2020-09-12] MEDS ORDERED: Levothyroxine Sodium 75 MCG TAB PO SCH (06:00)
[2020-09-12 07:25] LABS: Hemoglobin A1c 5.1 % (4.0-6.0)
--- NOTE | 2020-09-12 07:42 | PDOC.FM ---
- Subjective Subjective: Doing well this morning, no chest pain overnight. States CP yesterday was substernal, relieved by nitro initially but then not, and non-exertional. Pain is different from when she had her CO. Has history of GERD but pain not relieved with tums. Denies SOB, diaphoresis, abd pain, n/v, fever/chills. Tolerating PO. - Objective MAR Reviewed: Yes Vital Signs & Weight: Vital Signs (12 hours) Temp Pulse Resp BP Pulse Ox 09/12/20 04:00 98.3 F 86 16 103/54 L 94 L 09/12/20 00:41 98.0 F 75 18 118/68 98 Weight Weight 82.01 kg I&O: 09/11/20 09/12/20 09/13/20 06:59 06:59 06:59 Intake Total 400 Output Total 350 Balance 50 Result Diagrams: 09/12/20 02:44 09/12/20 02:44 Phys Exam - Physical Examination Constitutional: NAD (resting comfortably, good spirits) HEENT: PERRLA, moist MMs Neck: supple Respiratory: no wheezing, no rales, no rhonchi, clear to auscultation bilateral Cardiovascular: RRR, no significant murmur, no rub Gastrointestinal: soft, non-tender, no distention, positive bowel sounds Musculoskeletal: no edema Neurological: moves all 4 limbs Psychiatric: normal affect, A&O x 3 Dx/Plan (1) Chest pain Code(s): R07.9 - CHEST PAIN, UNSPECIFIED Status: Acute (2) CAD (coronary artery disease) Code(s): I25.10 - ATHSCL HEART DISEASE OF [place] CORONARY ARTERY W/O ANG PCTRS Status: Chronic - Plan Plan: 60yo F qwith h/o CAD s/p stents, HTN, HLD, GERD who presents for atypical chest pain #Atypical chest pain likely 2/2 to ACS vs. GERD - substernal, minimally relieved by nitro, nonexertional - significant cardiac history of CAD s/p stents and CO in Sep 2019; patient also has history of GERD - Consider GI cocktail if sxs return - EKG: normal sinus rhythm, no st segment changes. No acute events on tele - Trop 0.011 -> <0.010 - Stress test 08/03/20: normal - daily aspirin and nitro prn - Pt known to Dr. Washington #Hypothyroidism - TSH: 8.6657 - Recent increase from 50mcg to 75mcg of levo by PCP within last month, will cont 75 mcg and defer to PCP OP management #HLD - continue home meds #HTN - continue home meds #Anxiety - continue home meds #GERD - continue home med #Normocytic Anemia - Hb 10.8, no acute bleed, baseline 12, monitor and consider OP workup PCP: Alis Code: Full IVF: SL Diet: HH VTE: Lovenox Dispo: Admitted for atypical chest pain, ACS r/o. Trops negative, EKG no acute changes and no acute events on tele, pain resolved. Stress normal last month. Anticipate discharge today with OP cardiology follow up. Addendum - Attending - Attending Attestation Date/Time: 09/12/20 0097 I personally evaluated the patient and discussed the management with Dr. Campbell. I agree with the History, Examination, Assessment and Plan documented above with any addition or exceptions noted below.
[2020-09-12] MEDS ORDERED: Carvedilol 3.125 MG TAB PO SCH (08:00)
[2020-09-12] MEDS ORDERED: Aspirin Chewable 81 MG TAB PO SCH (08:00)
[2020-09-12 08:10] VITALS: BP 110/60; TEMP 98.2
[2020-09-12] MEDS ORDERED: TICAGRELOR 90 MG TABLET PO SCH (09:00)
[2020-09-12] MEDS ORDERED: Lisinopril 2.5 MG TAB PO SCH (09:00)
[2020-09-12] MEDS ORDERED: FLUoxetine HCl 20 MG CAP PO SCH (09:00)
[2020-09-12] MEDS ORDERED: Enoxaparin Sodium 40 MG/0.4 ML SYRINGE SC SCH (09:00)
[2020-09-12 11:09] LABS: SARS-CoV-2 MS2 Positive; SARS-CoV-2 N Gene Negative; SARS-CoV-2 S Gene Negative; SARS-CoV-2 by NAA Not Detected (NotDetected); SARS-CoV-2 orf1ab Negative
[2020-09-12] MEDS ORDERED: Atorvastatin Calcium 40 MG TAB PO SCH (21:00)
--- NOTE | 2020-09-13 03:59 | DIS ---
DATE OF ADMISSION: 09/12/2020 DATE OF DISCHARGE: 09/12/2020 RESIDENT: Zeferino Campbell MD. ADMITTING ATTENDING: Rukhsana Covarrubias MD. DISCHARGE ATTENDING: Corky Buck MD. CONSULTS: None. PROCEDURES: Chest x-ray on 09/11/2020, demonstrating no acute cardiopulmonary process. PRIMARY DIAGNOSIS: Atypical chest pain, likely secondary to gastroesophageal reflux disease. SECONDARY DIAGNOSES: 1. Hypothyroidism. 2. Hyperlipidemia. 3. Hypertension. 4. Anxiety. 5. Gastroesophageal reflux disease. 6. Normocytic anemia. DISCHARGE MEDICATIONS: 1. Nitrostat 0.4 mg sublingual q.5 minutes p.r.n. 2. Aspirin 81 mg p.o. daily. 3. Atorvastatin 80 mg p.o. at bedtime. 4. Coreg 3.125 mg p.o. b.i.d. 5. Lisinopril 2.5 mg p.o. daily. 6. Brilinta 90 mg p.o. b.i.d. 7. Prozac 20 mg p.o. daily. 8. Synthroid 75 mcg p.o. daily. 9. Ranexa 500 mg p.o. b.i.d. 10. Protonix 40 mg p.o. daily. 11. Repatha 140 mg subcu as directed. DISCONTINUED MEDICATIONS: None. HISTORY OF PRESENT ILLNESS AND HOSPITAL COURSE: The patient is a 60-year-old female, history of CAD, status post AR and stents x2 placed in September 2019, hyperlipidemia, anxiety, GERD, who presented with chief complaint of chest pain. She stated that the pain started around 10 a.m. the day of admission. She took nitroglycerin with resolution of the pain. The pain was nonexertional and substernal. She then had return of the pain around 1 p.m. that was not relieved with nitroglycerin and thus she presented later to the [facility] for evaluation and management. There, she was given aspirin and nitroglycerin with no resolution of the pain and ultimately transferred to [facility] for further evaluation and management. At presentation, the patient was chest pain free, she endorsed mild GERD symptoms. Her troponins were negative x3. Chest x-ray was negative. Records were reviewed and she had a stress test performed in July that showed no reversible cardiac filling defects. The patient was monitored overnight on telemetry without any acute events. Her EKG showed no acute ST or T-wave changes. On the morning of discharge, the patient was eager to be discharged home. She states she had to follow up with her lemon grower next week and was encouraged to keep this appointment. A TSH was checked and found to be elevated. However, the patient states she had a recent increase of her levothyroxine dose by her PCP and that she was instructed to follow up with her PCP for further management of this. Discharge plan discussed with the patient, who voiced agreement and understanding of the discharge plan and return precautions given. All questions were answered. The patient was then discharged home to follow with her lemon grower as an outpatient. DISPOSITION: Stable. DISCHARGE INSTRUCTIONS: 1. Location: Home. 2. Diet: Heart healthy. 3. Activity as tolerated. 4. Followup: The patient is to follow with her lemon grower as directed. The patient is to follow with her PCP within one week of discharge. Job ID: [id number] [id number]
== END 2020-09-12 11:32 | disposition home or self-care (01) ==
LOC: ERS 23:21 → 2NO 09-12 00:06
PROVIDERS: ADMIT Student in an Organized Health Care Education/Training Program; ATTEND Student in an Organized Health Care Education/Training Program
DX: R07.89 Other chest pain (principal); E03.9 Hypothyroidism, unspecified; E78.5 Hyperlipidemia, unspecified; I10 Essential (primary) hypertension; F41.9 Anxiety disorder, unspecified; K21.9 Gastro-esophageal reflux disease without esophagitis; D64.9 Anemia, unspecified; I25.10 Atherosclerotic heart disease of native coronary artery without angina pectoris; I25.2 Old myocardial infarction; Z87.891 Personal history of nicotine dependence; Z79.02 Long term (current) use of antithrombotics/antiplatelets; Z79.82 Long term (current) use of aspirin; Z79.899 Other long term (current) drug therapy; Z95.5 Presence of coronary angioplasty implant and graft; Z20.828 Contact with and (suspected) exposure to other viral communicable diseases
CPT/HCPCS: 36415; 80048; 83036; 84439; 84443; 84484; 85025; 87635; 93005; 94760; 96372; G0378; J1650; U0003

== ENCOUNTER 2021-02-19 14:40 | Outpatient (CLI) | payer BC | END 2021-02-19 14:41 | disposition home or self-care (01) | LOC: CTENTCT 14:40 | PROVIDERS: ATTEND Specialist | DX: J32.8 Other chronic sinusitis (principal) | CPT/HCPCS: 70486 ==

== ENCOUNTER 2022-08-06 18:00 | Outpatient (CLI) | payer BC | END 2022-08-06 18:01 | disposition home or self-care (01) | LOC: SLEEPLAB 18:00 | PROVIDERS: ATTEND Family Medicine | DX: G47.33 Obstructive sleep apnea (adult) (pediatric) (principal); R06.83 Snoring; G47.00 Insomnia, unspecified; I10 Essential (primary) hypertension; E66.9 Obesity, unspecified; Z68.28 Body mass index [BMI] 28.0-28.9, adult | CPT/HCPCS: 95800 ==

== ENCOUNTER → 2022-11-14 | Outpatient (CLI) | payer BC | LOC: SLEEPLAB 19:00 | PROVIDERS: ATTEND Family Medicine | DX: G47.33 Obstructive sleep apnea (adult) (pediatric) (principal); I10 Essential (primary) hypertension; R06.83 Snoring; G47.10 Hypersomnia, unspecified; E66.9 Obesity, unspecified; Z68.28 Body mass index [BMI] 28.0-28.9, adult | CPT/HCPCS: 95811 ==